=== PATIENT | male | born 2000 | race Caucasian/White ===

== ENCOUNTER 2022-10-28 17:30 | Emergency (ER) | payer SELFPAY ==
[~2022-10-28] VITALS: Ht 175.3 cm; Wt 74.8 kg
[2022-10-28 17:51] VITALS: BP_SYST 113
[2022-10-28] MEDS ORDERED: POLYTRIM EACH EYE (18:16)
[2022-10-28 18:59] VITALS: BP_SYST 113
== END 2022-10-28 18:59 | disposition home or self-care (01) ==
LOC: SED 17:30
DX: J06.9 Acute upper respiratory infection, unspecified (principal); H10.32 Unspecified acute conjunctivitis, left eye; R09.89 Other specified symptoms and signs involving the circulatory and respiratory systems; J02.9 Acute pharyngitis, unspecified; Z79.899 Other long term (current) drug therapy
CPT/HCPCS: 99283